=== PATIENT | female | born 1965 | race Two or more races ===

== ENCOUNTER 2025-06-03 18:01 | Emergency (ER) | payer MEDICAID, SELFPAY ==
--- NOTE | 2025-06-03 18:08 | EKG_ITS ---
[facility] Test Date: 2025-06-03 Pat Name: DI DANIEL Department: Room: - Gender: Female Field Supervisor: : [id number] Requested By: Ana Massey Order Number: [id number] Reading MD: Ana Massey Measurements Intervals [place] Rate: 67 P: 48 KS: 143 QRS: 10 QRSD: 74 T: -8 QT: 387 QTc: 411 Interpretive Statements SINUS RHYTHM LOW QRS VOLTAGE IN PRECORDIAL LEADS [QRS DEFLECTION < 1.0 mV IN CHEST LEADS] NONSPECIFIC T-WAVE ABNORMALITY No previous ECG available for comparison /[id number]/[email or web address]/[id number].pdf
[2025-06-03 18:23] VITALS: BP 125/83; PULSE 71; RESP 18; TEMP 37.1; O2SAT 97; BMI 24.5
--- NOTE | 2025-06-03 18:37 | XR_ITS ---
EXAMINATION: PA lateral chest 2 views TECHNIQUE: Upright PA lateral chest 2 views Date and time: June 03, 2025, 1842 hours INDICATIONS: Chest pain today FINDINGS: Normal heart size Lungs are clear. The osseous structures are intact IMPRESSION: No active disease
--- NOTE | 2025-06-03 18:43 | PD.EDRME ---
Rapid Medical Screening Exam RME Arrival date/time: 06/03/25 18:01 Chief Complaint: Chest Pain Time Seen by Provider: 06/03/25 18:34 Vital signs: Vital Signs Temperature 98.8 F 06/03/25 18:23 Pulse Rate 71 06/03/25 18:23 Respiratory Rate 18 06/03/25 18:23 Blood Pressure 125/83 06/03/25 18:23 Pulse Oximetry (%) 97 06/03/25 18:23 Oxygen Delivery Method Room Air 06/03/25 18:23 Vital signs reviewed by provider: Yes RME Narrative: Healthy 59-year-old female presents to the ER complaining of left-sided pleuritic chest pain with mild shortness of breath and nausea which has been ongoing since Monday.
[2025-06-03 19:18] LABS: Collection Type, Urine Clean Catch; WBC,Urine 0 /hpf (0-5)
[2025-06-03 19:34] LABS: Bilirubin,Urine Negative (Negative); Blood,Urine Negative (Negative); Clarity,Urine Clear (Clear/Hazy); Color,Urine Lt-Yellow (Lt Yel-Yel); Culture Indicated,Urine Not Indicated; Glucose, Urine Negative (Negative); Ketones,Urine Negative (Negative); Leukocyte Esterase,Urine Negative (Negative); Nitrite,Urine Negative (Negative); PH,Urine 6.5 (5.0-7.0); Protein,Urine Negative (Neg - Trace); RBC,Urine < 1 /hpf (0-3); Specific Gravity,Urine 1.009 (1.001-1.035); Squamous Epithelial Cell,Urine 10 /hpf (0-5); Urobilinogen,Urine Negative mg/dL (0.0-1.0)
[2025-06-03 19:56] LABS: Basophils # (Auto) 0.0 Thou/mm3 (0.0-0.2); Basophils % (Auto) 0 % (0-2.5); Eosinophils # (Auto) 0.0 Thou/mm3 (0.0-0.5); Eosinophils % (Auto) 0 % (0-10); Hematocrit 38.8 % (36.0-46.0); Hemoglobin 13.1 g/dL (12.0-16.0); Immature Granulocytes Auto 0.00 Thou/mm3 (0.00-0.00); Lymphocytes # (Auto) 1.6 Thou/mm3 (1.0-4.8); Lymphocytes % (Auto) 34 % (10-50); Mean Corpuscular HGB Conc 33.8 g/dl (31.0-37.0); Mean Corpuscular Hemoglobin 28.8 pg (25.0-35.0); Mean Corpuscular Volume 85 fL (80-100); Monocytes # (Auto) 0.2 Thou/mm3 (0.0-0.8); Monocytes % (Auto) 5 % (0-12); Neutrophils # (Auto) 2.8 Thou/mm3 (1.8-7.7); Neutrophils % (Auto) 61 % (37-80); Nucleated Red Blood Cell # 0.00 Thou/mm3 (0.00-0.00); Nucleated Red Blood Cell % 0 /100 WBC (0); Platelet Count 300 Thou/mm3 (140-440); RDW Standard Deviation 45.3 fL (36.4-46.3); Red Blood Count 4.55 Miln/mm3 (4.00-5.20); White Blood Count 4.7 Thou/mm3 (3.6-11.0)
[2025-06-03 20:08] LABS: D-Dimer < 250 ng/mL (<600)
[2025-06-03 20:14] LABS: B-Type Natriuretic Peptide 71 pg/mL (0-100); HCG,Qualitative Serum Negative
[2025-06-03 20:18] LABS: Alanine Aminotransferase 38 U/L (10-49); Albumin, Serum 4.5 gm/dL (3.5-5.0); Albumin/Globulin Ratio 1.6 (1.2-2.2); Alkaline Phosphatase 88 U/L (46-116); Anion Gap 11 (7-16); Aspartate Amino Transferase 34 U/L (0-34); BUN/Creatinine Ratio 9 Ratio (12-20); Bilirubin,Total 0.6 mg/dL (0.3-1.2); Blood Urea Nitrogen 6 mg/dL (9-23); Calcium 9.1 mg/dL (8.3-10.6); Calcium (Corrected) 9.1 mg/dL (8.5-10.1); Carbon Dioxide 25.3 mMol/L (20.0-31.0); Chloride 106 mMol/L (98-107); Creatinine (Component) 0.7 mg/dL (0.6-1.3); Estimated Creatinine Clearance 76.6 mL/min (>60); Globulin 2.8 gm/dL (2.3-3.5); Glucose 93 mg/dL (74-106); Lipase 32 U/L (12-53); Osmolality,Calculated 280 (275-295); Potassium 3.7 mMol/L (3.4-5.1); Sodium 142 mMol/L (136-145); Total Protein 7.3 gm/dL (5.7-8.2); Troponin I < 0.002 ng/mL (0.0-0.045); eGFR > 60 See Note
--- NOTE | 2025-06-03 21:34 | PD.EDCHEST ---
ED Chest Pain RME/HPI General Chief Complaint: Chest Pain Stated Complaint: CHEST PAIN X 3 DAYS, DYSPNEA Time Seen by Provider: 06/03/25 18:34 Arrival date/time: 06/03/25 18:01 RME / HPI RME / HPI narrative: Healthy 59-year-old female presents to the ER complaining of left-sided pleuritic chest pain with mild shortness of breath and nausea which has been ongoing since Monday. DR. MATHEWS MAIN ED EVALUATION: 59 y/o female presents to ED c/o chest pain x 3 days. Reports mild cough and pain with deep inhalation. Denies Asthma or any other medical history. Denies history of smoking. Related Data Previous Rx's ?Medication ?Instructions ?Recorded ibuprofen 600 mg tablet 600 mg PO Q8H PRN fever or pain 03/17/19 #30 tabs naproxen 500 mg tablet (Naprosyn) 500 mg PO BID PRN pain #30 tabs 06/03/25 Allergies Allergy/AdvReac Type Severity Reaction Status Date / Time No Known Allergies Allergy Verified 06/03/25 18:06 Review of Systems Review of Systems Systems Reviewed: All systems reviewed, normal except as documented ED Exam Narrative Physical exam: Generally patient is alert and in no obvious distress, heart regular rate and rhythm, lungs clear to auscultation equal bilaterally, chest shows patient reproducible chest wall tenderness to the left parasternal border. Extremities show no edema. Neurologic exam shows [place] Coma Scale 15 without focal neurologic deficit. Course Quality Measures none Orders Category Date Time Status EKG (ED ONLY) *Do not use* NOW Care 06/03/25 18:08 Completed EKG (ED Only) Stat Exams 06/03/25 18:08 Draft XR chest 2V Stat Exams 06/03/25 18:37 Completed B-Type Natriuretic Peptide Stat Lab 06/03/25 19:39 Completed CBC Stat Lab 06/03/25 19:39 Completed Comprehensive Metabolic Panel Stat Lab 06/03/25 19:39 Completed D-Dimer Stat Lab 06/03/25 19:39 Completed HCG,Qualitative Serum Stat Lab 06/03/25 19:39 Completed Lipase Stat Lab 06/03/25 19:39 Completed Troponin I Stat Lab 06/03/25 19:39 Completed Urinalysis, C/S if Indicated Stat Lab 06/03/25 19:00 Completed Vital Signs Vital signs: Vital Signs Temperature 98.8 F 06/03/25 18:23 Pulse Rate 71 06/03/25 18:23 Respiratory Rate 18 06/03/25 18:23 Blood Pressure 125/83 06/03/25 18:23 Pulse Oximetry (%) 97 06/03/25 18:23 Oxygen Delivery Method Room Air 06/03/25 18:23 Chest Pain MDM Narrative MDM Narrative:: Scribe Attestation: I, Maureen Polanco, am scribing for and in the presence of Dr. Mathews. Provider Notation: Although this document has been carefully reviewed, there may still be some phonetic and other typographical errors. These errors are purely grammatical due to imperfections in the software program and should not be construed in any way to compromise the substance of the patient's medical care during this visit. Troponin is not elevated. EKG when compared to an EKG in 2019 shows little change without ST segment change. Slight T wave inversions in the inferior leads were present previously. Chest x-ray was normal. D-dimer is not elevated. Extremity showed no edema or swelling. Patient has reproducible chest wall pain. I do not believe this to be cardiac related chest pain. Patient's heart score is 2. Patient is stable for discharge to follow-up with her primary care physician for further treatment and evaluation. Naprosyn as prescribed. I interpreted all labs. Patient data External records reviewed:: [facility] previous records (Reviewed prior ED records from 02/21/21. Patient was seen for Pelvic mass.) Clinical information provided by:: patient Social determinants that could affect healthcare access:: none Patient has the following chronic illnesses:: None reported How is presenting disease/condition affected by chronic disease/condition?: no chronic disease Evaluation data The following diagnostics were reviewed and interpreted by me:: lab results, radiology exam(s) and EKG tracing(s) Lab and/or radiology exams considered but not ordered:: None Interpretation Summary: RADIOLOGY Chest X-Ray: FINDINGS: Normal heart size Lungs are clear. The osseous structures are intact IMPRESSION: No active disease Medications / Prescriptions Medications or Prescriptions considered but not ordered:: None Medication administrations:: See above if any Consultations Consultation(s) initiated? (list below): No Diagnosis Chest Pain Differential Diagnosis: pneumothorax, stable angina, unstable angina pectoris, atypical chest pain, st elevation myocardial infarction, costochondritis and chest pain Most likely diagnosis given after review of the tests above:: none Admission Indicated Admission indicated?: not indicated Explain why admission is indicated or not indicated:: Patient does not meet admission criteria Admission Request Was there a request for admission?: No Disposition Plan Disposition Plan: Discharge Discharge Attestation Discharge Attestation: The patient and all family members were given an opportunity to ask questions and understood the discharge instructions. Discharge instructions specifically effects, indications for sooner follow up or return to the emergency department, and the expected course of current diagnosis. Patient condition: Stable Discharge Plan Plan Patient Disposition: HOME (Self Care) Prescriptions/Referrals Prescriptions/Med Rec: New naproxen [Naprosyn] 500 mg tablet 500 mg PO BID PRN (Reason: pain) Qty: 30 0RF No Action ibuprofen 600 mg tablet 600 mg PO Q8H PRN (Reason: fever or pain) Qty: 30 0RF Referrals: Breezy Garcia MD [Primary Care Provider, Family Practice] - In 1 week Problem List Clinical Impression: Atypical chest pain Patient/Caregiver Discharge Instructions Education Materials: ED Chest Pain, Uncertain Cause Additional Instructions: Naprosyn as prescribed. Follow-up with your doctor as needed for further treatment and evaluation. Return to ER as needed or if condition worsens. Print Language: [place]an Stand Alone Forms: Dian Award Info., Patient Portal Info Letter
== END 2025-06-03 21:56 | disposition home or self-care (01) ==
PROVIDERS: Physician Assistant; Emergency Provider Emergency Medicine; PCP Family Medicine
DX: R07.89 Other chest pain (principal)
CPT/HCPCS: 36415; 71046; 80053; 81001; 83690; 83880; 84484; 84703; 85025; 85379; 93005; 99283